=== PATIENT | male | born 1975 | race Two or more races ===

== ENCOUNTER 2018-04-30 11:38 | Outpatient (CLI) | payer OTHER | END 2018-04-30 11:43 | disposition home or self-care (01) | LOC: RAD 11:38 | DX: N20.1 Calculus of ureter (principal) ==

== ENCOUNTER → 2018-05-02 | Day surgery (SDC) | payer OTHER | END | disposition home or self-care (01) | LOC: CIR.AMB 09:15 | DX: N20.1 Calculus of ureter (principal) ==

== ENCOUNTER 2025-07-29 09:08 | Emergency (ER) | payer OTHER ==
[~2025-07-29] VITALS: Ht 185.4 cm; Wt 99.8 kg
[2025-07-29] MEDS ORDERED: TUSSI-PRES LIQ474 ML (09:46)
[2025-07-29] MEDS ORDERED: AZITHROMYCIN250 MG PO (09:46)
[2025-07-29] MEDS ORDERED: BENZONATATE200 M1 (09:46)
[2025-07-29] MEDS ORDERED: BUDESONIDE 0.5 MG/2 ML AMPUL.NEB IH ONE ×2 (10:15→10:24)
[2025-07-29] MEDS ORDERED: GUAIFENESIN/DEXTROMETHORPHAN 100MG/10ML BLIST.PACK PO ONE (10:15)
[2025-07-29] MEDS ORDERED: IPRATROPIUM/ALBUTEROL SULFATE 3 ML AMPUL.NEB IH SCH (10:15)
[2025-07-29] MEDS ORDERED: GUAIFEN/DEXTROMETHORPHAN/PE 10 ML BLIST.PACK PO ONE (10:16)
[2025-07-29] MEDS ORDERED: IPRATROPIUM/ALBUTEROL SULFATE 3 ML AMPUL.NEB IH ONE (10:24)
[2025-07-29 11:04] LABS: BASO % 0.6 % (0.1-1.2); EOS # 0.15 (0.04-0.54); EOS % 1.4 % (0.7-7.0); LYMPH # 2.29 (1.18-3.74); LYMPH % 22.1 % (19.3-53.1); MEAN PLATELET VOLUME 10.00 fl (9.4-12.4); MONO # 1.04 (0.24-0.82); MONO % 10.0 % (4.7-12.5); NEUT # 6.76 (1.56-6.13); NEUT % 65.3 % (34.0-71.1); RED CELL DISTRIBUTION WIDTH 12.9 % (11.6-14.4)
[2025-07-29 11:21] LABS: COVID-19 AG NEGATIVE (NEGATIVE)
[2025-07-29] MEDS ORDERED: LEVOFLOXACIN750 MG PO (12:23)
[2025-07-29] MEDS ORDERED: ACETAMINOPHEN500 M1 PO (12:24)
[2025-07-29] MEDS ORDERED: GILTUSS COUGH-118 M1 PO (12:24)
== END 2025-07-29 12:52 | disposition home or self-care (01) ==
LOC: ER 09:16
PROVIDERS: Preventive Medicine Public Health & General Preventive Medicine
DX: J06.9 Acute upper respiratory infection, unspecified (principal); R50.9 Fever, unspecified; R05.9 Cough, unspecified; Z20.822 Contact with and (suspected) exposure to COVID-19